=== PATIENT | female | born 1985 | race American Indian/Alaskan Native ===

== ENCOUNTER 2020-07-22 22:35 | Outpatient (CLI) | payer SELFPAY | END 2020-07-23 00:06 | disposition home or self-care (01) | LOC: TRG 22:35 → APU 22:36 | CPT/HCPCS: 59025 ==

== ENCOUNTER 2020-07-30 17:42 | Outpatient (CLI) | payer SELFPAY ==
[2020-07-30 18:17] VITALS: BP 111/73
== END 2020-07-30 19:06 | disposition home or self-care (01) ==
LOC: TRG 17:42 → APU 17:43 → TRG 19:06
PROVIDERS: ATTEND Obstetrics & Gynecology
DX: Z34.93 Encounter for supervision of normal pregnancy, unspecified, third trimester (principal); Z3A.40 40 weeks gestation of pregnancy
CPT/HCPCS: 59025